=== PATIENT | female | born 1990 | race Caucasian/White ===

== ENCOUNTER 2017-05-20 11:21 | Emergency (ER) | payer OTHER, BC ==
[2017-05-20] MEDS: ACETAMINOPHEN/CODEINE 300/30MG TABLET. PO (11:55)
== END 2017-05-20 11:57 | disposition home or self-care (01) ==
LOC: ER 11:21
DX: M54.41 Lumbago with sciatica, right side (principal); F12.10 Cannabis abuse, uncomplicated; Z88.2 Allergy status to sulfonamides
CPT/HCPCS: 99282

== ENCOUNTER 2020-05-03 07:34 | Emergency (ER) | payer OTHER ==
[~2020-05-03] VITALS: Ht 160 cm; Wt 104.5 kg
[~2020-05-03 07:34] MED LIST: CLIN300C9 PO; HYDR-3164 PO; IBUP200C9 PO
[2020-05-03 07:43] VITALS: BP 139/89
[2020-05-03] MEDS ORDERED: AMOX500C PO (07:55)
[2020-05-03] MEDS ORDERED: HYDR-3164 PO (07:55)
--- NOTE | 2020-05-03 07:56 | PHYS DOC ---
Past Medical History Past Medical History: No Pertinent History, Other Additional Past Medical Histor: "mthfr-blood mutation dx" Past Surgical History: Tonsillectomy, Other Additional Past Surgical Histo: adnoidectomy, deviated septum repair Smoking Status: Current Every Day Smoker Alcohol Use: Occasionally Drug Use: Marijuana General Adult EDM: Chief Complaint: DENTAL PROBLEM HPI: HPI: History obtained from patient. Patient is a 29-year-old female who presents with chief complaint of dental pain. She states she had a cavity filled approximately 10 days ago. She states ever since the Novocain wore off she has had constant pain in that area. She states that she spoke with her dentist 3 days ago and was told this could be pulpitis. She was encouraged to continue take ibuprofen. She states that she is been taking some return for from that her stomach is now upset. Denies fevers or vomiting. Denies pain with opening her mouth. Denies any changes to her voice. Denies any pain with swallowing. Denies any difficulty swallowing. States she does have some mild swelling to the left stump mandibular region. Notes that the swelling and pain seems to radiate to her left ear. She states she is scheduled to have wisdom teeth removed in 4 days. She has not been on any antibiotics. Denies any IV drug use. States pain is aching in nature. States it is constant. States nothing seems to alleviate her pain. States it is made worse with palpation. No other complaints. Review of Systems: Review of Systems: Constitutional: Denies fever or chills. [] Eyes: Denies change in visual acuity. [] HENT: Positive for dental pain Respiratory: Denies cough or shortness of breath. [] Cardiovascular: Denies chest pain or edema. [] GI: Denies abdominal pain, nausea, vomiting, bloody stools or diarrhea. [] : Denies dysuria. [] Musculoskeletal: Denies back pain or joint pain. [] Integument: Denies rash. [] Neurologic: Denies headache, focal weakness or sensory changes. [] Endocrine: Denies polyuria or polydipsia. [] Lymphatic: Denies swollen glands. [] Psychiatric: Denies depression or anxiety. [] Heart Score: Risk Factors: Risk Factors: DM, Current or recent (<one month) smoker, HTN, HLP, family history of CAD, obesity. Risk Scores: Score 0 - 3: 2.5% MACE over next 6 weeks - Discharge Home Score 4 - 6: 20.3% MACE over next 6 weeks - Admit for Clinical Observation Score 7 - 10: 72.7% MACE over next 6 weeks - Early Invasive Strategies Allergies: Allergies: Allergies Coded Allergies Type Severity Reaction Last Updated Verified Sulfa (Sulfonamide Antibiotics) Allergy Mild vomiting 02/12/14 No Physical Exam: PE: Constitutional: Well developed, well nourished, no acute distress, non-toxic appearance. [] ENT: Tolerates saliva. No trismus. Mild erythema of the oropharynx without exudate. No airway obstruction. Normal phonation. Uvula midline. No cavities or apical abscesses visualized. NECK: No midline cervical tenderness. Left submandibular adenopathy noted.. No tenderness of carotid sheath bilaterally. Neck supple with full ROM and without signs of meningismus. Eyes: PERRLA, EOMI, conjunctiva normal, no discharge. [] Neck: Normal range of motion, no tenderness, supple, no stridor. [] Cardiovascular:Heart rate regular rhythm, no murmur [] Lungs & Thorax: Bilateral breath sounds clear to auscultation [] Abdomen: soft, no tenderness, no masses, no pulsatile masses. [] Skin: Warm, dry, no erythema, no rash. [] Back: No tenderness, no CVA tenderness. [] Extremities: No tenderness, no cyanosis, no clubbing, ROM intact, no edema. [] Neurologic: Alert and oriented X 3, normal motor function, normal sensory function, no focal deficits noted. [] Psychologic: Affect normal, judgement normal, mood normal. [] EKG: EKG: [] Radiology/Procedures: Radiology/Procedures: [] Course & Med Decision Making: Course & Med Decision Making Pertinent Labs and Imaging studies reviewed. (See chart for details) [] Patient is a well-appearing 29-year-old female who presents with chief complaint of dental pain. Patient states her dentist told her this could be pulpitis related. She also notes that she has an impacted wisdom tooth that needs to be removed in 4 days. At this time overall there is a low suspicion for infection. Low suspicion for deep space infection. No indication for advanced imaging. Given the patient does have some mild swelling to the region and her pain is been persistent over the past week she will be given a short course of amoxicillin. She also given a short course of analgesia. She was instructed to speak with her dentist and oral surgeon tomorrow. Return precautions discussed and understood. Stable for discharge home. Anaid Disclaimer: Anaid Disclaimer: This electronic medical record was generated, in whole or in part, using a voice recognition dictation system. Departure Departure Impression: Primary Impression: Pain, dental Disposition: DC HOME SELF CARE/HOMELESS Condition: STABLE Referrals: JAVON PIERCE MD (PCP) Patient Instructions: Dental Pain Additional Instructions: Please follow-up with your dentist and oral surgeon this week. Scripts Hydrocodone/Apap 5-325 (NORCO 5-325 TABLET) 1 Each Tablet 1-2 EACH PO PRN Q6HRS PRN for PAIN, #5 as needed for pain Prov: NOEMI MERINO DO 05/03/20 Amoxicillin (AMOXICILLIN) 500 Mg Capsule 1 CAP PO BID for 10 Days, #20 CAP Prov: NOEMI MERINO DO 05/03/20 NOEMI MERINO DO May 03, 2020 07:56
[2020-05-03] MEDS ORDERED: AMOXICILLIN 250 MG CAPSULE. PO ONE (08:00)
[2020-05-03] MEDS ORDERED: HYDROcodone/APAP 5/325MG 1 TAB TABLET PO ONE (08:00)
== END 2020-05-03 08:04 | disposition home or self-care (01) ==
LOC: ER 07:34
DX: K08.89 Other specified disorders of teeth and supporting structures (principal); F12.90 Cannabis use, unspecified, uncomplicated; F17.200 Nicotine dependence, unspecified, uncomplicated; Z90.89 Acquired absence of other organs; Z98.890 Other specified postprocedural states
CPT/HCPCS: 99283

== ENCOUNTER 2020-07-19 15:26 | Emergency (ER) | payer OTHER ==
[~2020-07-19] VITALS: Ht 160 cm; Wt 107.0 kg
[~2020-07-19 15:26] MED LIST changes: +AMOX500C PO
[2020-07-19 15:39] VITALS: BP 161/97
[2020-07-19] MEDS ORDERED: DEXAMETHASONE 4 MG TABLET PO ONE (16:15)
[2020-07-19] MEDS ORDERED: AMOX500C PO (16:30)
[2020-07-19] MEDS ORDERED: HYDR-2761 PO (16:30)
--- NOTE | 2020-07-19 16:31 | PHYS DOC ---
Past Medical History Past Medical History: Other Additional Past Medical Histor: "mthfr-blood mutation dx" Past Surgical History: Tonsillectomy, Other Additional Past Surgical Histo: adnoidectomy, deviated septum repair Smoking Status: Current Every Day Smoker Alcohol Use: Occasionally Drug Use: Marijuana General Adult EDM: Chief Complaint: DENTAL PROBLEM HPI: HPI: Patient is a 30 year old female who presents with complaint of left lower back tooth pain that started on Monday. She states that her dentist is only open on Monday and Fridays but this started Monday night. She also complains of throat pain when swallowing on the left side more so. She does have some slight swelling to the left neck and it is slightly tender to touch. Patient denies fever, headache, dizziness, cough, nasal congestion, inability to swallow food or fluids, shortness of breath, chest pain, abdominal pain, nausea, vomiting, diarrhea. Patient has a history of smoking, MTHFR blood mutation, adenoidectomy, deviated septum repair. Patient rates her overall pain an 8 out of 10 aching. Review of Systems: Review of Systems: Constitutional: Denies fever or chills. [] Eyes: Denies change in visual acuity. [] HENT: Denies nasal congestion. + sore throat. + Dental pain [] Respiratory: Denies cough or shortness of breath. [] Cardiovascular: Denies chest pain or edema. [] GI: Denies abdominal pain, nausea, vomiting, bloody stools or diarrhea. [] : Denies dysuria. [] Musculoskeletal: Denies back pain or joint pain. + Left throat swelling with tenderness through the neck. [] Integument: Denies rash. [] Neurologic: Denies headache, focal weakness or sensory changes. [] Endocrine: Denies polyuria or polydipsia. [] Lymphatic: Denies swollen glands. [] Psychiatric: Denies depression or anxiety. [] Heart Score: Risk Factors: Risk Factors: DM, Current or recent (<one month) smoker, HTN, HLP, family history of CAD, obesity. Risk Scores: Score 0 - 3: 2.5% MACE over next 6 weeks - Discharge Home Score 4 - 6: 20.3% MACE over next 6 weeks - Admit for Clinical Observation Score 7 - 10: 72.7% MACE over next 6 weeks - Early Invasive Strategies Current Medications: Current Medications Medications (Trade) Dose Ordered Sig/James Start Time Stop Time Status Last Admin Dose Admin Dexamethasone (Decadron) 10 mg 1X ONCE 07/19/20 16:15 07/19/20 16:16 DC Allergies: Allergies: Allergies Coded Allergies Type Severity Reaction Last Updated Verified Sulfa (Sulfonamide Antibiotics) Allergy Mild vomiting 02/12/14 No Physical Exam: PE: Constitutional: Well developed, well nourished, no acute distress, non-toxic appearance. [] HENT: Normocephalic, atraumatic, bilateral external ears normal, oropharynx moist, no oral exudates, nose normal. Redness of the throat. Left back molar tenderness with palpation but no abscess. [] Eyes: PERRLA, EOMI, conjunctiva normal, no discharge. [] Neck: Normal range of motion, left upper neck tenderness, supple, no stridor. [] Cardiovascular:Heart rate regular rhythm, no murmur [] Lungs & Thorax: Bilateral breath sounds clear to auscultation [] Abdomen: Bowel sounds normal, soft, no tenderness, no masses, no pulsatile masses. [] Skin: Warm, dry, no erythema, no rash. [] Back: No tenderness, no CVA tenderness. [] Extremities: No tenderness, no cyanosis, no clubbing, ROM intact, no edema. [] Neurologic: Alert and oriented X 3, normal motor function, normal sensory function, no focal deficits noted. [] Psychologic: Affect normal, judgement normal, mood normal. [] Current Patient Data: Vital Signs: Vital Signs Date Time Temp Pulse Resp B/P (MAP) Pulse Ox O2 Delivery O2 Flow Rate FiO2 07/19/20 15:39 98.5 91 16 161/97 (118) 97 Room Air 98.5 EKG: EKG: [] Radiology/Procedures: Radiology/Procedures: [] Course & Med Decision Making: Course & Med Decision Making Pertinent Labs and Imaging studies reviewed. (See chart for details) See HPI. Alert and oriented x4. Speaks in clear full sentences. Ambulatory with a steady gait. Afebrile. Skin pink warm and dry. Back of the patient's throat looks reddened but there does not look to be any swelling or exudates. Pain to left side of the upper neck and 1+ swelling. No dental abscess. Pain with palpation to the left back molar area. There is not seem to be any broken teeth. Full range of motion of her neck and denies any neck stiffness. I have given her a dose of dexamethasone 10 mg in the ED. She will be placed on amoxicillin antibiotics. Patient is to call her dentist to get an appointment immediately. [] Anaid Disclaimer: Anaid Disclaimer: This electronic medical record was generated, in whole or in part, using a voice recognition dictation system. Departure Departure Impression: Primary Impression: Pain, dental Additional Impression: Throat pain in adult Disposition: 01 DC HOME SELF CARE/HOMELESS Condition: STABLE Referrals: JAVON PIERCE MD (PCP) Patient Instructions: Dental Pain, Sore Throat Additional Instructions: Follow-up with a dentist as soon as possible. Follow-up with your primary care for your throat pain. Take medication as prescribed and with food. Do not drink and or drive with any narcotic pain medications when he sleeping. If your symptoms worsen before you can be seen by your primary care return emergency room. Scripts Hydrocodone Bit/Acetaminophen (HYDROCODONE-APAP 5-325 ) 1 Tab Tablet 1 TAB PO PRN Q6HRS PRN for PAIN, #10 TAB 0 Refills Prov: RORY BARBA APRN 07/19/20 Amoxicillin (AMOXICILLIN) 500 Mg Capsule 1 CAP PO BID, #20 CAP Prov: RORY BARBA APRN 07/19/20 RORY BARBA APRN Jul 19, 2020 16:31
== END 2020-07-19 17:55 | disposition home or self-care (01) ==
LOC: ER 15:26
DX: K08.89 Other specified disorders of teeth and supporting structures (principal); R07.0 Pain in throat; R60.0 Localized edema; F17.200 Nicotine dependence, unspecified, uncomplicated; F12.90 Cannabis use, unspecified, uncomplicated; Z90.89 Acquired absence of other organs; Z98.890 Other specified postprocedural states
CPT/HCPCS: 87070; 87880; 99283

== ENCOUNTER 2020-10-03 10:58 | Emergency (ER) | payer OTHER ==
[~2020-10-03 10:58] MED LIST changes: +HYDR-2761 PO
[2020-10-03 11:34] VITALS: BP 161/97
== END 2020-10-03 11:54 | disposition left against medical advice (07) ==
LOC: ER 10:58
DX: M54.5 Low back pain (principal); M79.604 Pain in right leg; Z53.21 Procedure and treatment not carried out due to patient leaving prior to being seen by health care provider

== ENCOUNTER → 2020-11-16 | Outpatient (CLI) | payer OTHER ==
--- NOTE | 2020-11-16 11:29 | KCIC ---
EXAMINATION: Magnetic resonance imaging (MRI) of the lumbar spine without contrast 11/16/2020 10:12 AM HISTORY: Lumbar back pain and right-sided radiculopathy TECHNIQUE: Multiplanar multi-weighted MRI of the lumbar spine was performed without intravenous contr ast using the standard lumbar spine protocol. Contrast information: None administered. COMPARISON: None available. FINDINGS: There is 2 mm retrolisthesis of L5 on S1. No definite pars defect is visualized by MRI. Mild disc hei ght loss L5-S1 with disc desiccation. Vertebral bodies demonstrate normal signal intensity on all se quences. There are no compression fractures. The conus medullaris terminates at the level of L1. Th e distal spinal cord signal intensity is normal. Limited views of the abdomen and pelvis show no sof t tissue abnormality. The aorta is normal. L1-L2: The disc is normal in configuration. There is no facet arthropathy. There is no neuroforaminal stenosis. There is no spinal canal stenosis. L2-L3: The disc is normal in configuration. There is no facet arthropathy. There is no neuroforaminal stenosis. There is no spinal canal stenosis. L3-L4: The disc is normal in configuration. There is no facet arthropathy. There is no neuroforaminal stenosis. There is no spinal canal stenosis. L4-L5: The disc is normal in configuration. There is no facet arthropathy. There is no neuroforaminal stenosis. There is no spinal canal stenosis. L5-S1: There is a disc bulge with right testicular zone disc extrusion. Findings result in moderate s tenosis of the right subarticular zone with mass effect on the exiting right S1 nerve root. No signif icant spinal canal stenosis or neuroforaminal stenosis. 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 Electronically signed by: Imani Taylor MD (11/16/2020 11:26 AM) [facility]
== END ==
LOC: KCIC MRI 09:58
PROVIDERS: ATTEND Family Medicine
DX: M51.17 Intervertebral disc disorders with radiculopathy, lumbosacral region (principal); M48.07 Spinal stenosis, lumbosacral region
CPT/HCPCS: 72148